=== PATIENT | male | born 2000 | race Caucasian/White ===

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

== ENCOUNTER 2021-05-04 21:36 | Emergency (ER) | payer MEDICAID ==
[~2021-05-04] VITALS: Ht 180.3 cm; Wt 69.0 kg
[2021-05-04 21:36] VITALS: BP 128/80
[~2021-05-04 21:36] MED LIST changes: +IBUP-1780 PO
[2021-05-04] MEDS ORDERED: ERYTHROMYCIN OPHTH OINT 1 GM (SINGLE USE) TUBE OP STA (21:53)
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
== END 2021-05-04 22:04 | disposition home or self-care (01) ==
LOC: EDUNIT# 21:36 → ER FS 21:41
DX: S05.11XA Contusion of eyeball and orbital tissues, right eye, initial encounter (principal); F17.200 Nicotine dependence, unspecified, uncomplicated; W22.8XXA Striking against or struck by other objects, initial encounter
CPT/HCPCS: 99282

== ENCOUNTER 2021-07-09 20:29 | Emergency (ER) | payer MEDICAID ==
[~2021-07-09] VITALS: Ht 180.3 cm; Wt 68.6 kg
--- OUTSIDE RECORDS SUMMARY | 2021-07-09 20:37 | XMS REPORT | Clinical Summary ---
Author Author [facility] Organization [facility] Address Unknown Phone Unavailable Care Team Providers Care Negative Retoucher Name Role Phone Dottie Yost PhD Unavailable Unavailable Wai Goyal MD PCP Source Comments Some departments are not documenting in the electronic medical record. If you d o not see the information that you expected, contact Release of Information in [facility] [employer] Information Management department at [phone] for further assistan ce in locating additional records.[facility] Allergies No Known Active Allergies Medications End Date Status Medication Sig Dispensed Refills Start Date Active dextroamphetamine/ampheta Take 5 mg by 0 mine (ADDERALL PO) mouth daily as needed. Active ARISTADA 662 mg/2.4 mL Inject 662 mg 0 01 sers injection into the 8 muscle every 30 days. Active Problems Problem Noted Date Obesity (BMI 30-39.9) 08/24/2018 Intellectual disability 08/13/2018 Overview: Formatting of this note might be differ ent from the original. Mild Receptive-expressive language delay 05/18/2018 DMDD (disruptive mood dysregulation disorder) 2017 Overview: Formatting of this note might be differ ent from the original. Per [place] in 2016 ADHD (attention deficit hyperactivity disorder), comb ined type 06/18/2016 Oppositional defiant disorder 06/18/2016 Social History Date Tobacco Use Types Packs/Day Years Used Never Smoker Smokeless Tobacco: Never Used Comments Alcohol Use Standard Drinks/Week No 0 (1 standard drink = 0.6 o z pure alcohol) Sex Assigned at Date Recorded Not on file Last Filed Vital Signs Reading Time Taken Comments Vital Sign 104/68 08/23/2018 12:25 PM CDT Blood Pressure 62 08/23/2018 12:25 PM CDT Pulse - - Temperature - - Respiratory Rate - - Oxygen Saturation - - Inhaled Oxygen Concentration 80.8 kg (178 lb 3.2 oz) 08/23/2018 12:25 PM CDT Weight 148 cm (4' 10.25") 08/23/2018 12:25 PM CDT Height 36.92 08/23/2018 12:25 PM CDT Body Mass Index Plan of Treatment Health Maintenance Due Date Last Done Comments HPV VACCINES (1 - Male 2012 2-dose series) HIV SCREENING 2016 DTAP/TDAP VACCINES (1 - 2019 Tdap) HEPATITIS C SCREENING 2019 PHYSICAL (COMPREHENSIVE) 2019 EXAM INFLUENZA VACCINE 08/02/2021 MENINGOCOCCAL VACCINE Completed 04/20/2018 ([place]) Results Not on filefrom Last 3 Months Insurance Type Payer Benefit Subscriber ID Effective Phone Address Plan / Dates Group Medicaid [employer] [place] [employer] [id number] 2010- STATE Present HEALTH [address] (Home) [place] [phone] Advance Directives Patient Passenger Service Supervisor Explanation Type Date Recorded Advance Directive/DPOA
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
[2021-07-09] MEDS ORDERED: IOHEXOL 350 MG/ML 100 ML (OMNIPAQUE 350) VIAL IV ONE (21:15)
[2021-07-09] MEDS ORDERED: HOLD METFORMIN - RECEIVED CONTRAST 20 ML VIAL IV SCH (21:15)
[2021-07-09] MEDS ORDERED: NS 100 ML (IVPB) BAG IV ONE (21:15)
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
[2021-07-09 22:24] VITALS: BP 128/52
== END 2021-07-09 22:25 | disposition home or self-care (01) ==
LOC: EDUNIT# 20:29 → ER FS 20:31
DX: S30.1XXA Contusion of abdominal wall, initial encounter (principal); V86.99XA Unspecified occupant of other special all-terrain or other off-road motor vehicle injured in nontraffic accident, initial encounter
CPT/HCPCS: 74177

== ENCOUNTER 2021-08-23 21:01 | Emergency (ER) | payer MEDICAID ==
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
[2021-08-23 21:22] VITALS: BP 142/56
== END 2021-08-23 21:22 | disposition home or self-care (01) ==
LOC: EDUNIT# 21:01 → ER FS 21:03
DX: R19.09 Other intra-abdominal and pelvic swelling, mass and lump (principal)
CPT/HCPCS: 99281

== ENCOUNTER 2021-09-10 01:38 | Emergency (ER) | payer MEDICAID ==
--- NOTE | 2021-09-10 01:49 | ED Abdominal Pain ---
General Stated Complaint: LT SIDE FLANK PAIN History of Present Illness Date Seen by Provider: Sep 10, 2021 Time Seen by Provider: 01:49 Initial Comments 21-year-old male presents with left side pain. Reports the pain right at the Base of his ribs. Patient denies any injury. He reports is just a dull pain is been it stays all the time. Nothing seems make it worse or better. Patient has tried some ibuprofen with it. Has been there for at least 3 to 4 days. He denies any fevers chills nausea vomiting or other systemic complaints. Allergies and Home Medications Allergies Coded Allergies: No Known Drug Allergies (Unverified , 01/21/19) Patient Home Medication List Home Medication List Reviewed: Yes Ibuprofen (Ibuprofen) 600 Mg Tablet, 600 MG PO Q8H PRN for PAIN-MILD Prescribed by: BROOKE FISHER on 02/20/20 1251 Ibuprofen (Ibuprofen) 800 Mg Tablet, 800 MG PO Q8H PRN for PAIN Prescribed by: LOREN SINCLAIR on 12/30/201 Review of Systems Review of Systems Constitutional: No chills, No fever Respiratory: Denies Cough, Denies Shortness of Air Cardiovascular: Denies Chest Pain, Denies Irregular Heart Rate Gastrointestinal: See HPI Genitourinary: No Symptoms Reported Musculoskeletal: see HPI Skin: no symptoms reported Psychiatric/Neurological: No Symptoms Reported Endocrine: No Symptoms Reported Past Rqgswjb-Cgwbmg-Xloghp Hx Seasonal Allergies Seasonal Allergies: No Past Medical History Surgeries: Yes (ear tubes) Respiratory: No Cardiac: No Neurological: No Genitourinary: No Gastrointestinal: No Musculoskeletal: No Endocrine: No HEENT: No Cancer: No Psychosocial: Yes ADD/ADHD Integumentary: No Blood Disorders: No Adverse Reaction/Blood Tranf: No Physical Exam Vital Signs Vital Signs - First Documented 09/10/21 01:45 Temp 36.9 Pulse 62 Resp 18 B/P (MAP) 124/59 (80) Pulse Ox 98 O2 Delivery Room Air Capillary Refill : Height/Weight/BMI Height: 5'9.00" Weight: 170lbs. oz. 77.451535ll; 21.00 BMI Method:Stated General Appearance: WD/WN, no apparent distress Neck: full range of motion, supple Respiratory: lungs clear Cardiovascular: normal peripheral pulses, regular rate, rhythm Gastrointestinal: soft, tenderness (Mild tenderness right along the left costal angle on the lateral aspect) Extremities: normal range of motion, non-tender, normal inspection Neurologic/Psychiatric: etl informatica architect II-XII nml as tested, alert, normal mood/affect, oriented x 3 Skin: normal color, warm/dry Progress/Results/Core Measures Results/Orders My Orders Orders - ROSA KNAPP DO Abdomen (Kub) 1 View (09/10/21 01:53) Chest 1 View Ap/Pa Only (09/10/21 01:53) Vital Signs/I&O 09/10/21 09/10/21 01:45 02:16 Temp 36.9 36.9 Pulse 62 62 Resp 18 18 B/P (MAP) 124/59 (80) 124/59 Pulse Ox 98 98 O2 Delivery Room Air Room Air Progress Progress Note : Progress Note Patient with no acute findings on x-rays. Patient was offered labs but declined. As patient was being discharged he brought up his right groin mass that he was evaluated for on 08/23/2021. He reports it was still there and has not changed. I reiterated with him that he needs to follow-up with a primary care provider to arrange for an outpatient ultrasound. Patient stable and discharged home Diagnostic Imaging Diagonstic Imaging: Xray Plain Films/CT/US/NM/MRI: chest, abdomen Comments No acute abnormality detected on either 1 view chest or KUB Reviewed: Reviewed by Me Departure Impression Primary Impression: Left-sided abdominal pain of unknown etiology Additional Impressions: Mass of right inguinal region Strain of muscle, fascia and tendon of abdomen, initial encounter Disposition: 01 HOME, SELF-CARE Condition: Stable Departure-Patient Inst. Referrals: GLORIA MIRANDA MD (PCP/Family) Primary Care Physician Patient Instructions: Abdominal Muscle Strain Add. Discharge Instructions: Please follow-up with your primary care provider for an ultrasound of your right groin mass and further outpatient management Tylenol ibuprofen as needed for pain Follow-up with your primary care provider if your side pain has not resolved in the next 4 to 5 days for further evaluate ROSA KNAPP DO Sep 10, 2021 01:49
[2021-09-10 02:16] VITALS: BP 124/59
--- NOTE | 2021-09-10 07:28 | Diagnostic Imaging Report ---
EXAMINATION: Abdominal radiographs, single view. DATE: September 10, 2021. CLINICAL INDICATION: 21-year-old male, left-sided abdominal pain. COMPARISON: CT abdomen pelvis July 09, 2021. COMMENTS: The upper abdomen is incompletely imaged. There are no abnormally dilated gas-filled segments of bowel. There is no identified free intraperitoneal air, pneumatosis, or portal venous gas. There is transitional lumbosacral anatomy. 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 There is no identified abnormal radiodensity overlying the kidneys or expected positions of the ureters or right lower quadrant. IMPRESSION: 1. No identified acute abdominal radiographic abnormality. 2. Transitional lumbosacral anatomy. If spinal intervention is to be performed in the future, recommend careful correlation with levels. Dictated by: Dictated on workstation # [id number]
--- NOTE | 2021-09-10 07:32 | Diagnostic Imaging Report ---
EXAMINATION: Chest radiograph, portable AP view. DATE: 09/10/2021 2:02 AM INDICATION: 21-year-old male, left-sided chest pain. COMPARISON: None. FINDINGS: Heart size and mediastinal contours are unremarkable. There is no identified pneumothorax. There is no large pleural effusion. There is no identified focal airspace consolidation. IMPRESSION: No identified acute cardiopulmonary abnormality. Dictated by: Dictated on workstation # [id number]
== END 2021-09-10 02:16 | disposition home or self-care (01) ==
LOC: EDUNIT# 01:38 → ER FS 01:40
DX: S39.011A Strain of muscle, fascia and tendon of abdomen, initial encounter (principal); R19.09 Other intra-abdominal and pelvic swelling, mass and lump; X58.XXXA Exposure to other specified factors, initial encounter
CPT/HCPCS: 71045; 74018

== ENCOUNTER 2022-02-02 20:31 | Emergency (ER) | payer MEDICAID ==
[~2022-02-02] VITALS: Ht 175 cm; Wt 68.1 kg
[2022-02-02 20:39] VITALS: BP 136/66
--- NOTE | 2022-02-02 20:48 | ED General ---
General Chief Complaint: General Problems/Pain Stated Complaint: LOWER ABDOMINAL AND STOMACHE PAIN Nursing Triage Note: PT PRESENTS AND REPORTS WHEN HE LAYS ON HIS RIGHT SIDE HE HAS LEFT SIDE PAIN. WHEN HE LAYS ON HIS LEFT SIDE HE HAS RIGHT SIDE PAIN. WE HE LAYS ON HIS BACK HE HAS ABD PAIN AND WHEN HE LAYS ON HIS ABD HE HAS BACK PAIN. DENIES ANY PAIN CURRENTLY. DENIES N/V/D Source of Information: Patient History of Present Illness Date Seen by Provider: Feb 02, 2022 Time Seen by Provider: 20:39 Initial Comments 21 yo male presents with complaint of abdominal pain that started earlier tonight. He states he was laying on his right side and had pain on the left side. Then when he turned over to the left side the pain moved to his right side. He tried laying on his back and he had pain in the middle of his belly that went to his back. He did not have any nausea, vomiting, diarrhea, constipation, pain with urination, fever, chills. He denies having pain like this in the past. He was feeling better by the time he arrived here in the ED. He was asking how long it would take before he could even go home. Severity: Mild Modifying Factors: worse with Movement Associated Systoms: No Chest Pain, No Cough, No Diaphoresis, No Fever/Chills, No Headaches, No Loss of Appetite, No Malaise, No Nausea/Vomiting, No Rash, No Seizure, No Shortness of Air, No Syncope, No Weakness Allergies and Home Medications Allergies Coded Allergies: No Known Drug Allergies (Unverified , 01/21/19) Patient Home Medication List Home Medication List Reviewed: Yes Ibuprofen (Ibuprofen) 600 Mg Tablet, 600 MG PO Q8H PRN for PAIN-MILD Prescribed by: BROOKE FISHER on 02/20/20 1251 Ibuprofen (Ibuprofen) 800 Mg Tablet, 800 MG PO Q8H PRN for PAIN Prescribed by: LOREN SINCLAIR on 12/30/202110 Review of Systems Review of Systems Constitutional: No chills, No fever EENTM: no symptoms reported Respiratory: no symptoms reported Cardiovascular: no symptoms reported Gastrointestinal: see HPI Genitourinary: no symptoms reported Musculoskeletal: no symptoms reported Skin: no symptoms reported Psychiatric/Neurological: No Symptoms Reported Past Qnacaiw-Qpkmqp-Yajaxa Hx Patient Social History Tobacco Use?: Yes Tobacco type used: Cigarettes Smoking Status: Current Everyday Smoker Substance use?: No Alcohol Use?: Yes Alcohol type: Beer Alcohol Frequency: Couple times a week Pt feels they are or have been: No Immunizations Up To Date Influenza Vaccine Up-to-Date: No; Not Current Seasonal Allergies Seasonal Allergies: No Past Medical History Surgeries: Yes (ear tubes) Respiratory: No Cardiac: No Neurological: No Genitourinary: No Gastrointestinal: No Musculoskeletal: No Endocrine: No HEENT: No Cancer: No Psychosocial: Yes ADD/ADHD Integumentary: No Blood Disorders: No Adverse Reaction/Blood Tranf: No Physical Exam Vital Signs Vital Signs - First Documented 02/02/22 20:39 Temp 37.0 Pulse 68 Resp 18 B/P (MAP) 136/66 (89) Pulse Ox 99 O2 Delivery Room Air Capillary Refill : Height, Weight, BMI Height: 5'9.00" Weight: 170lbs. oz. 77.798138ij; 22.00 BMI Method:Stated General Appearance: No Apparent Distress, WD/WN HEENT: PERRL/EOMI, Pharynx Normal, Moist Mucous Membranes Respiratory: Chest Non Tender, Lungs Clear, Normal Breath Sounds, No Accessory Muscle Use, No Respiratory Distress Cardiovascular: Regular Rate, Rhythm, Normal Peripheral Pulses Gastrointestinal: Normal Bowel Sounds, No Pulsatile Mass, Non Tender, Soft; No Distended, No Guarding, No Mass, No Rebound; Tenderness (complaint of mild epigastric tenderness with palpation) Rectal: Deferred Back: No CVA Tenderness, No Vertebral Tenderness Extremity: Normal Capillary Refill, Normal Inspection, No Pedal Edema Neurologic/Psychiatric: Alert, Oriented x3, cereal miller II-XII Norm as Tested Skin: Normal Color, Warm/Dry Progress/Results/Core Measures Suspected Sepsis SIRS Temperature: Pulse: 68 Respiratory Rate: 18 Blood Pressure 136 /66 Mean: 89 Results/Orders My Orders Orders - LOREN SINCLAIR MD Acute Abd Series (02/02/22 20:40) Vital Signs/I&O 02/02/22 20:39 Temp 37.0 Pulse 68 Resp 18 B/P (MAP) 136/66 (89) Pulse Ox 99 O2 Delivery Room Air Capillary Refill : Blood Pressure Mean: 89 Progress Note : Progress Note Abdominal x-ray series was obtained to evaluate for possible bowel obstruction, constipation, perforation. On my review of the three-view films he had no signs of acute perforation or bowel obstruction. He had maybe some mild increase in gas and stool. Counseled to follow a bland diet and if his pain worsens to return. At this point patient refused to have any further testing such as blood work or CT scan. He was counseled on return precautions and stressed the importance of being seen again if he has increased pain and more symptoms. Diagnostic Imaging Diagonstic Imaging: Xray Plain Films/CT/US/NM/MRI: abdomen Comments [facility], [place] NAME: XAVI PUCKETT [facility] REC#: [id number] PT STATUS: REG ER : 2001 PHYSICIAN: LOREN SINCLAIR MD ADMIT DATE: 02/02/22/ER FS Draft Date of Exam:02/02/22 ACUTE ABD SERIES HISTORY: Abdominal pain. TECHNIQUE: Frontal view of the chest. Upright and supine frontal views of the abdomen. COMPARISON: 09/10/2021. FINDINGS: Lung volumes are normal. There is no consolidation. There is no pleural effusion or pneumothorax. The cardiac silhouette is normal in size. There is no free air in the abdomen. Bowel gas pattern appears normal. There is no distention. There is a small amount of gas in the colon. The stool burden is low. No acute osseous abnormality is seen. IMPRESSION: 1. No evidence of bowel obstruction or large collection of free air. 2. No acute pulmonary abnormality. Dictated on workstation # [id number] Dict: 02/02/222049 Trans: 02/02/222053 [facility] [id number] Interpreted by: DIVINE MADRID MD Electronically signed by: Reviewed: Reviewed by Me Departure Impression Primary Impression: Abdominal gas pain Disposition: HOME, SELF-CARE Condition: Stable Departure-Patient Inst. Decision time for Depature: 20:57 Referrals: GLORIA MIRANDA MD (PCP/Family) Primary Care Physician Patient Instructions: Abdominal Pain, Adult ED, [place] Diet, Gas and Bloating Add. Discharge Instructions: Try following a bland and easy diet for next 24 hours. Consider using Gas-x to help with gas and abdominal pains. If you have worsening pain, develop nausea and vomiting, fever over 101 F then return or get checked in clinic All discharge instructions reviewed with patient and/or family. Voiced understanding. LOREN SINCLAIR MD Feb 02, 2022 20:48
--- NOTE | 2022-02-02 20:54 | Diagnostic Imaging Report ---
HISTORY: Abdominal pain. TECHNIQUE: Frontal view of the chest. Upright and supine frontal views of the abdomen. COMPARISON: 09/10/2021. FINDINGS: Lung volumes are normal. There is no consolidation. There is no pleural effusion or pneumothorax. The cardiac silhouette is normal in size. There is no free air in the abdomen. Bowel gas pattern appears normal. There is no distention. There is a small amount of gas in the colon. The stool burden is low. No acute osseous abnormality is seen. IMPRESSION: 1. No evidence of bowel obstruction or large collection of free air. 2. No acute pulmonary abnormality. Dictated by: Dictated on workstation # [id number]
== END 2022-02-02 21:02 | disposition home or self-care (01) ==
LOC: EDUNIT# 20:31 → ER FS 20:34
DX: R14.0 Abdominal distension (gaseous) (principal); F17.210 Nicotine dependence, cigarettes, uncomplicated
CPT/HCPCS: 74022; 99281

== ENCOUNTER 2022-04-29 10:19 | Emergency (ER) | payer MEDICAID ==
[~2022-04-29] VITALS: Ht 180.3 cm; Wt 67.4 kg
[2022-04-29] MEDS ORDERED: ONDA4TAB11 PO (10:39)
--- NOTE | 2022-04-29 10:39 | ED GI ---
General Chief Complaint: Abdominal/GI Problems Stated Complaint: DIARRHEA, VOMITING History of Present Illness Date Seen by Provider: Apr 29, 2022 Time Seen by Provider: 10:30 Initial Comments 21-year-old male presents with nausea, vomiting and diarrhea. Patient reports that he started having the symptoms yesterday. That he continued to have some vomiting x1 today and some diarrhea. Patient has some mild stomach cramping. No fever, chills, cough, shortness of breath. Patient reports that his girlfr deborah's mom had similar symptoms about a week ago. Allergies and Home Medications Allergies Coded Allergies: No Known Drug Allergies (Unverified , 01/21/19) Patient Home Medication List Home Medication List Reviewed: Yes Ibuprofen (Ibuprofen) 600 Mg Tablet, 600 MG PO Q8H PRN for PAIN-MILD Prescribed by: BROOKE FISHER on 02/20/20 1251 Ibuprofen (Ibuprofen) 800 Mg Tablet, 800 MG PO Q8H PRN for PAIN Prescribed by: LOREN SINCLAIR on 12/30/202110 Review of Systems Review of Systems Constitutional: No chills, No fever Respiratory: No Symptoms Reported Gastrointestinal: See HPI, Abdominal Pain (Diffuse cramping), Diarrhea, Nausea, Vomiting Musculoskeletal: no symptoms reported Skin: no symptoms reported Psychiatric/Neurological: No Symptoms Reported Endocrine: No Symptoms Reported Hematologic/Lymphatic: No Symptoms Reported Past Chfsaro-Cabtho-Tyosrm Hx Patient Social History Tobacco Use?: No Smoking Status: Never a Smoker Smokeless Tobacco Frequency: Never a User Use of E-Cig and/or Vaping dev: Yes E-Cig or Vaping type used: Nicotine Use of E-Cig and/or Vaping [place]: Current Everyday User Substance use?: No Alcohol Use?: No Pt feels they are or have been: No Seasonal Allergies Seasonal Allergies: No Past Medical History Surgeries: Yes (ear tubes) Respiratory: No Cardiac: No Neurological: No Genitourinary: No Gastrointestinal: No Musculoskeletal: No Endocrine: No HEENT: No Cancer: No Psychosocial: Yes ADD/ADHD Integumentary: No Blood Disorders: No Adverse Reaction/Blood Tranf: No Physical Exam Vital Signs Capillary Refill : Height/Weight/BMI Height: 5'9.00" Weight: 170lbs. oz. 77.960528ja; 22.00 BMI Method:Stated General Appearance: WD/WN, no apparent distress HEENT: PERRL/EOMI Neck: full range of motion, normal inspection Respiratory: lungs clear, normal breath sounds, no respiratory distress Cardiovascular: normal peripheral pulses, regular rate, rhythm Gastrointestinal: non tender, soft Neurologic/Psychiatric: no motor/sensory deficits, alert, normal mood/affect, oriented x 3 Skin: normal color, warm/dry Progress/Results/Core Measures Progress Progress Note : Progress Note Patient is requesting something for the nausea and diarrhea. Patient declined labs, IV fluids and IV medication. He would prefer just a prescription. I discussed with him that prescribe him some Zofran to help with the vomiting. I also discussed him that I did not recommend an antidiarrheal at this time. Patient agreed with that plan. I will prescribe him Zofran and he will be discharged home Departure Impression Primary Impression: Viral gastroenteritis Disposition: HOME, SELF-CARE Condition: Stable Departure-Patient Inst. Referrals: GLORIA MIRANDA MD (PCP) Primary Care Physician Patient Instructions: [place] Diet, Viral Gastroenteritis Add. Discharge Instructions: Clear liquid diet, advance as tolerated Drink plenty of fluid All discharge instructions reviewed with patient and/or family. Voiced understanding. Scripts Ondansetron (Ondansetron Odt) 4 Mg Tab.rapdis 4 MG PO Q6H PRN for NAUSEA/VOMITING, #20 TAB 0 Refills Prov: ROSA KNAPP DO 04/29/22 ROSA KNAPP DO Apr 29, 2022 10:39
[2022-04-29 10:42] VITALS: BP 126/71
== END 2022-04-29 10:42 | disposition home or self-care (01) ==
LOC: EDUNIT# 10:19 → ER FS 10:23
DX: A08.4 Viral intestinal infection, unspecified (principal); F17.290 Nicotine dependence, other tobacco product, uncomplicated
CPT/HCPCS: 99283

== ENCOUNTER 2022-11-25 05:34 | Emergency (ER) | payer MEDICAID ==
[~2022-11-25] VITALS: Ht 172.7 cm; Wt 76.0 kg
[~2022-11-25 05:34] MED LIST changes: +ONDA4TAB11 PO
--- NOTE | 2022-11-25 05:53 | ED Cough/URI ---
General Chief Complaint: Cough/Cold/Flu Symptoms Stated Complaint: COUGH,FEVER,SORE THROAT History of Present Illness Date Seen by Provider: Nov 25, 2022 Time Seen by Provider: 05:43 Initial Comments 22-year-old male is here with complaints of sore throat for the past 4 days. 4 days ago patient went to urgent care and had a rapid strep test done which was negative. Patient states that he has been having intermittent cough with sputum production (no cough heard in the ER), subjective fever and sore throat. Denies known sick contacts, shortness of breath, chest pain, abdominal pain, diarrhea. Allergies and Home Medications Allergies Coded Allergies: No Known Drug Allergies (Unverified , 01/21/19) Patient Home Medication List Home Medication List Reviewed: Yes No Active Prescriptions or Reported Meds Review of Systems Review of Systems Constitutional: fever EENTM: nose congestion, throat pain Respiratory: cough, phlegm Cardiovascular: no symptoms reported Gastrointestinal: no symptoms reported Genitourinary: no symptoms reported Musculoskeletal: no symptoms reported Skin: no symptoms reported Psychiatric/Neurological: No Symptoms Reported Hematologic/Lymphatic: No Symptoms Reported Immunological/Allergic: no symptoms reported Past Simzefs-Eixdnf-Ndqusr Hx Patient Social History Tobacco Use?: No Use of E-Cig and/or Vaping dev: Yes E-Cig or Vaping type used: Nicotine Substance use?: No Additional substance use comme: Reports is on probation and must not smoke marijuana now Alcohol Use?: Yes Alcohol Frequency: Once in a while Immunizations Up To Date Influenza Vaccine Up-to-Date: No; Not Current First/Initial COVID19 Vaccinat: Unvaccinated Seasonal Allergies Seasonal Allergies: No Past Medical History Surgeries: Yes (ear tubes) Respiratory: No Cardiac: No Neurological: No Genitourinary: No Gastrointestinal: No Musculoskeletal: No Endocrine: No HEENT: No Cancer: No Psychosocial: Yes ADD/ADHD Integumentary: No Blood Disorders: No Adverse Reaction/Blood Tranf: No Physical Exam Vital Signs - First Documented 11/25/22 05:40 Temp 36.1 Pulse 79 Resp 20 B/P (MAP) 133/67 (89) Pulse Ox 99 O2 Delivery Room Air Capillary Refill : Height: 5'9.00" Weight: 170lbs. oz. 77.660170vf; 20.00 BMI Method:Stated General Appearance: WD/WN, no apparent distress HEENT: PERRL/EOMI, TMs normal, pharyngeal erythema Neck: non-tender, full range of motion Respiratory: chest non-tender, lungs clear, normal breath sounds Cardiovascular: regular rate, rhythm Gastrointestinal: non tender, soft Neurologic/Psychiatric: alert, normal mood/affect, oriented x 3 Skin: normal color Lymphatic: no adenopathy Progress/Results/Core Measures Suspected Sepsis SIRS Temperature: Pulse: Respiratory Rate: Blood Pressure / Mean: Results/Orders Lab Results Laboratory Tests Test 11/25/22 05:45 Range/Units Influenza Type A (RT-PCR) Not Detected Not Detecte Influenza Type B (RT-PCR) Not Detected Not Detecte SARS-CoV-2 RNA (RT-PCR) Not Detected Not Detecte Group A Streptococcus Screen NEGATIVE NEGATIVE My Orders Orders - NANCY DANIELS MD Rapid Strep A Screen (11/25/22 05:45) Covid 19 Inhouse Test (11/25/22 05:45) Influenza A And B By Pcr (11/25/22 05:45) Vital Signs/I&O 11/25/22 05:40 Temp 36.1 Pulse 79 Resp 20 B/P (MAP) 133/67 (89) Pulse Ox 99 O2 Delivery Room Air Capillary Refill : Progress Note : Progress Note 1. VIRAL PHARYNGITIS: - COVID test/ Rapid strep test: negative - Rapid flu test: negative - Out of window for Tamiflu - Advised adequate hydration, Tylenol or Ibuprofen prn fever or body aches - Follow up with PCP in 3 to 7 days - patient is ruled out for strep, COVID, and flu -The patient was seen in the ED, and treated appropriately to presentation at a specific point in time. Patient is informed that there is a possibility that disease and illness can evolve and change in acuity rapidly or slowly after patient is discharged from the ER. Precautionary advice given to the patient for immediate return to ER if symptoms worsen or do not resolve, and to seek emergency care sooner rather than later. Pt also advised on the importance of PCP follow up and compliance with management and follow up plan with PCP and/or specialist, as this is part of the management plan. Pt verbally expressed understanding. Departure Impression Primary Impression: Viral pharyngitis Disposition: HOME, SELF-CARE Condition: Stable Departure-Patient Inst. Referrals: GLORIA MIRANDA MD (PCP/Family) Primary Care Physician Patient Instructions: Viral Pharyngitis, Viral Pharyngitis (DC) Add. Discharge Instructions: - Out of window for Tamiflu - Advised adequate hydration, Tylenol or Ibuprofen prn fever or body aches All discharge instructions reviewed with patient and/or family. Voiced understanding. Scripts No Active Prescriptions or Reported Meds Work/School Note: Work Release Form Date Seen in the Emergency Department: Nov 25, 2022 Return to Work: Nov 27, 2022 NANCY DANIELS MD Nov 25, 2022 05:53
[2022-11-25 06:25] VITALS: BP 133/67
== END 2022-11-25 06:25 | disposition home or self-care (01) ==
LOC: EDUNIT# 05:34 → ER FS 05:35
DX: J02.9 Acute pharyngitis, unspecified (principal); F17.290 Nicotine dependence, other tobacco product, uncomplicated; Z20.822 Contact with and (suspected) exposure to COVID-19; Z28.310 Unvaccinated for COVID-19
CPT/HCPCS: 87430; 87636

== ENCOUNTER 2022-12-09 02:35 | Emergency (ER) | payer MEDICAID ==
[~2022-12-09] VITALS: Ht 175.2 cm; Wt 72.7 kg
[2022-12-09 03:00] VITALS: BP 147/91
--- NOTE | 2022-12-09 03:00 | ED GU-Male ---
General Stated Complaint: WANTS TESTED FOR VENEREAL DISEASE Source: patient History of Present Illness Date Seen by Provider: Dec 09, 2022 Time Seen by Provider: 02:43 Initial Comments 22 yo male presenting without any specific physical complaint. He reports he had been drinking earlier tonight and told his girlfriend he had sex with another girl in April 2022 and did not know if she had any sexually transmitted infections so he came in to be seen tonight due to concern for possible sexually transmitted infection. He denies any discharge or drainage from urethra, no pain with urination, no blood in his urine, no pus in his urine. He is not having any concerning symptoms but is [facility] He was wanting testing for chlamydia and gonorrhea and "any other infections that can be transmitted sexually". Timing/Duration: other (concern for possible sexually transmitted infection since April 2022) Severity/Quality: other (no symptoms) Activities at Onset: sexual activity Prior Genitourinary Problems: none Sexual [place] History: less than 2 months ago, single partner Associated Symptoms: No abdominal pain, No diaphoresis, No dysuria, No fever/chills, No loss of bladder control, No lower back pain, No lumps, No mass, No nausea/vomiting, No nocturia, No polyuria, No swelling, No syncope, No urinary frequency Allergies and Home Medications Allergies Coded Allergies: No Known Drug Allergies (Unverified , 01/21/19) Patient Home Medication List Home Medication List Reviewed: Yes No Active Prescriptions or Reported Meds Review of Systems Review of Systems Constitutional: No chills, No fever EENTM: no symptoms reported Respiratory: no symptoms reported Cardiovascular: no symptoms reported Gastrointestinal: no symptoms reported Genitourinary: denies burning, denies discharge, denies dysuria, denies incontinence, denies pain, denies urgency Musculoskeletal: no symptoms reported Skin: No lesions, No rash Psychiatric/Neurological: Anxiety (worried he might have infection) Endocrine: No Symptoms Reported Past Fmmkrgc-Gemodq-Xlgzxo Hx Patient Social History Use of E-Cig and/or Vaping dev: Yes E-Cig or Vaping type used: Nicotine Use of E-Cig and/or Vaping [place]: Current Everyday User Substance use?: Yes Substance type: Marijuana Alcohol Use?: Yes Alcohol type: Beer, Hard Liquor Alcohol Frequency: Daily Immunizations Up To Date First/Initial COVID19 Vaccinat: Unvaccinated Seasonal Allergies Seasonal Allergies: No Past Medical History Surgeries: Yes (ear tubes) Respiratory: No Cardiac: No Neurological: No Genitourinary: No Gastrointestinal: No Musculoskeletal: No Endocrine: No HEENT: No Cancer: No Psychosocial: Yes ADD/ADHD Integumentary: No Blood Disorders: No Adverse Reaction/Blood Tranf: No Physical Exam Vital Signs Capillary Refill : Height, Weight, BMI Height: 5'9.00" Weight: 170lbs. oz. 77.021186ws; 25.00 BMI Method:Stated General Appearance: WD/WN, no apparent distress Cardiovascular: normal peripheral pulses Gastrointestinal: normal bowel sounds, non tender, soft, no pulsatile mass Rectal: deferred Male: normal genitalia; No erythema, No inguinal tenderness, No testicular tenderness, No other (no discharge or drainage from urethra) Neurologic/Psychiatric: alert, oriented x 3 Skin: warm/dry; No rash Progress/Results/Core Measures Suspected Sepsis SIRS Temperature: Pulse: Respiratory Rate: Blood Pressure / Mean: Results/Orders My Orders Orders - LOREN SINCLAIR MD Neisseria Gonorrhea Swab (12/09/22 02:55) Chlamydia Trachomatis Swab (12/09/22 02:55) Vital Signs/I&O Capillary Refill : Progress Note : Progress Note Advised patient that without symptoms he is less likely to have infection, especially from sexual encounter back in April 2022. We can send a urethral swab to the lab to check for Gonorrhea and Chlamydia. He would need to go through PCP, [facility] clinic or Health Department to have other testing such as HIV or Hepatitis as those are tests that require a blood draw and a provider to meet and discuss results and treatment options. As he has no discharge or urinary complaints will defer antibiotics until test result comes back. If it is positive he will get a call and can follow up with PCP, [facility] or Health department for treatment and repeat testing to see that he has been treated. He should abstain from sex or at the very least wear a condom with any sexual contact until he has test results back and is treated for any positive findings. If he has discharge or pus from his urethra or develops new symptoms he could be seen again for repeated testing. Since he was not having any pain with urination or pus or blood in his urine a Urinalysis was not ordered and a urethral swab was done to check for Gonorrhea and Chlamydia in place of urine testing. Counseled to follow up with clinic or health department for additional evaluation and treatment as needed. Departure Impression Primary Impression: Concern about STD in male without diagnosis Disposition: 01 HOME, SELF-CARE Condition: Stable Departure-Patient Inst. Decision time for Depature: 02:56 Referrals: GLORIA GOYAL MD (PCP/Family) Primary Care Physician Patient Instructions: Screening for Sexually Transmitted Infections, Sexually Transmitted Diseases ED Add. Discharge Instructions: The swab from tonight will check for Gonorrhea and Chlamydia. The test will take a few days to run with the lab so you should receive a call later this week once the results are back. To do additional testing looking for other sexually transmitted infections such as HIV or Hepatitis you need to be seen in [facility] clinic, see Dr. Goyal or go to the Health Department. You should avoid sexual contact or at the very least wear a condom and have safe sex to help prevent spreading any infection until you have results from your testing. Scripts No Active Prescriptions or Reported Meds LOREN SINCLAIR MD Dec 09, 2022 02:59
== END 2022-12-09 03:00 | disposition home or self-care (01) ==
LOC: EDUNIT# 02:35 → ER FS 02:39
DX: Z11.3 Encounter for screening for infections with a predominantly sexual mode of transmission (principal); F17.290 Nicotine dependence, other tobacco product, uncomplicated; Z28.310 Unvaccinated for COVID-19
CPT/HCPCS: 36415; 87491; 87591; 99284

== ENCOUNTER 2023-02-21 17:44 | Emergency (ER) | payer MEDICAID ==
[~2023-02-21] VITALS: Ht 175 cm; Wt 74.6 kg
[2023-02-21 17:46] VITALS: BP 143/88
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
[2023-02-21] MEDS ORDERED: IBUPROFEN 800 MG (MOTRIN) TAB PO ONE (18:15)
[2023-02-21] MEDS ORDERED: TETANUS,DIPTH,PERTUSS P/F (BOOSTRIX) 0.5 ML VIAL IM ONE (18:15)
== END 2023-02-21 18:20 | disposition home or self-care (01) ==
LOC: EDUNIT# 17:44 → ER FS 17:46
DX: S80.211A Abrasion, right knee, initial encounter (principal); F17.290 Nicotine dependence, other tobacco product, uncomplicated; Z23 Encounter for immunization; Z02.79 Encounter for issue of other medical certificate; Y04.8XXA Assault by other bodily force, initial encounter; W19.XXXA Unspecified fall, initial encounter; Y92.524 Gas station as the place of occurrence of the external cause; Y99.0 Civilian activity done for income or pay
CPT/HCPCS: 90715; 99284

== ENCOUNTER 2023-03-30 11:30 | Emergency (ER) | payer MEDICAID ==
[~2023-03-30] VITALS: Ht 175 cm; Wt 80.0 kg
[2023-03-30] MEDS ORDERED: IBUPROFEN 600 MG (MOTRIN) TAB PO ONE (11:45)
--- NOTE | 2023-03-30 11:49 | ED General ---
General Chief Complaint: Oral/Throat Problems Stated Complaint: SORE THROAT Nursing Triage Note: Patient has presented to ER with cc of a sore throat that started yesterday, he has not taken anything for the sore throat and came to ER for evaluation. He reports some cough with green mucus. Source of Information: Patient Exam Limitations: No Limitations History of Present Illness Date Seen by Provider: March 30, 2023 Time Seen by Provider: 11:31 Initial Comments 22-year-old male with no pertinent past medical history coming in due to a couple days of cough, sore throat, no fever, congestion, and no other issues. Specifically, denies any chest pain, shortness of breath, abdominal pain, n ausea, vomiting, diarrhea, weakness, numbness, rash, headache, neck stiffness, or any other concerns. Has not taken any medicines for it as of yet. He does have a younger child and he believes that is how he got sick Allergies and Home Medications Allergies Coded Allergies: No Known Drug Allergies (Unverified , 01/21/19) Patient Home Medication List Home Medication List Reviewed: Yes No Active Prescriptions or Reported Meds Review of Systems Review of Systems Constitutional: No fever EENTM: see HPI Respiratory: see HPI Cardiovascular: no symptoms reported Gastrointestinal: no symptoms reported Past Aibbqpy-Euwkiw-Fzuzgj Hx Patient Social History Tobacco Use?: No Use of E-Cig and/or Vaping dev: No Substance use?: No Alcohol Use?: No Immunizations Up To Date First/Initial COVID19 Vaccinat: unknown Second COVID19 Vaccination Omkar: unknown Third COVID19 Vaccination Date: unknown Seasonal Allergies Seasonal Allergies: No Past Medical History Surgeries: Yes (ear tubes) Respiratory: No Cardiac: No Neurological: No Genitourinary: No Gastrointestinal: No Musculoskeletal: No Endocrine: No HEENT: No Cancer: No Psychosocial: Yes ADD/ADHD Integumentary: No Blood Disorders: No Adverse Reaction/Blood Tranf: No Physical Exam Vital Signs Vital Signs - First Documented 03/30/23 11:36 Temp 36.3 Pulse 85 B/P (MAP) 128/79 (95) Pulse Ox 99 O2 Delivery Room Air Capillary Refill : Height, Weight, BMI Height: 5'9.00" Weight: 170lbs. oz. 77.533545eq; 26.00 BMI Method:Stated General Appearance: No Apparent Distress, WD/WN Eyes: Bilateral Eye Normal Inspection HEENT: PERRL/EOMI, TMs Normal, Normal ENT Inspection, Pharyngeal Erythema; No Tonsillar Exudate, No Tonsillar Enlargement Neck: Full Range of Motion, Normal Inspection, Non Tender, Supple Respiratory: Chest Non Tender, Lungs Clear, Normal Breath Sounds, No Accessory Muscle Use, No Respiratory Distress Cardiovascular: Regular Rate, Rhythm, No Edema, Normal Peripheral Pulses Gastrointestinal: Normal Bowel Sounds, Non Tender, Soft; No Distended, No Guarding Back: Normal Inspection, No CVA Tenderness Extremity: Normal Capillary Refill, Normal Inspection, Normal Range of Motion, Non Tender, No Calf Tenderness, No Pedal Edema Neurologic/Psychiatric: Alert Progress/Results/Core Measures Suspected Sepsis SIRS Temperature: Pulse: 85 Respiratory Rate: Blood Pressure 128 /79 Mean: 95 Results/Orders Vital Signs/I&O 03/30/23 11:36 Temp 36.3 Pulse 85 B/P (MAP) 128/79 (95) Pulse Ox 99 O2 Delivery Room Air Capillary Refill : Blood Pressure Mean: 95 Progress Note : Progress Note 22-year-old male presenting for sore throat, cough, and congestion. ABCs were intact and vitals were stable on presentation. Physical exam with oropharyngeal erythema but no exudate. He is low risk for strep throat, especially given his age and he has no fever, no tonsillar exudates, he has a cough, and no enlarged lymph nodes. Because of this, strep test was not ordered. Otherwise well- appearing, basic labs also not obtained. I will give him a dose of steroids for the pharyngitis here and just recommend ibuprofen as an outpatient for symptom management. He was then discharged home in stable condition with strict return precautions Departure Impression Primary Impression: Pharyngitis Qualified Codes: J02.8 - Acute pharyngitis due to other specified organisms Additional Impression: URI (upper respiratory infection) Qualified Codes: J06.9 - Acute upper respiratory infection, unspecified Disposition: 01 HOME, SELF-CARE Condition: Stable Departure-Patient Inst. Decision time for Depature: 11:55 Referrals: GLORIA MIRANDA MD (PCP) Primary Care Physician Patient Instructions: Sore Throat, Adult ED Add. Discharge Instructions: This looks like it is caused by a virus. It does not look like strep throat, and additionally having a cough is a good sign that it is not strep throat. Take ibuprofen 600 mg every 6 hours as needed for pain. The steroid you received should also help a little bit with the throat pain in the next few days. Expect your throat to hurt for a few days, and the cough could linger for a while longer. You can try using honey, cough drops, and a humidifier in the house Scripts No Active Prescriptions or Reported Meds Work/School Note: Work Release Form Date Seen in the Emergency Department: March 30, 2023 Return to Work: April 01, 2023 Restrictions: Return-No Fever (24hrs) ROSY SAUCEDA MD March 30, 2023 11:49
[2023-03-30 11:51] VITALS: BP 128/79
== END 2023-03-30 11:52 | disposition home or self-care (01) ==
LOC: EDUNIT# 11:30 → ER FS 11:33
DX: J02.9 Acute pharyngitis, unspecified (principal); Z28.310 Unvaccinated for COVID-19
CPT/HCPCS: 99283